=== PATIENT | female | born 1965 | race African-American/Black ===

== ENCOUNTER → 2020-09-03 | Outpatient (CLI) | payer OTHER ==
[2015-05-22 14:15] VITALS: BP 136/70
[~2020-09-03] MED LIST: AMLO2.5T5 PO; CHOL200074 PO; CYAN-25 PO; DOXY100C2 PO; FERR325T58 PO; HYDR-3164 PO; HYDR12.575 PO; HYDR12.58 PO; IOHEXOL 300 MG/ML 100ML VIAL. IV ONE
--- NOTE | 2020-09-03 15:37 | KCIC ---
CT SOFT TISSUE NECK W/CONTRAST DATE: 09/03/2020 12:00 AM INDICATION: Mass Left side of neck 3-4 weeks. TECHNIQUE: Axial computed tomography of the neck with intravenous contrast according to the standard neck protocol. 95 cc of Omnipaque 300 was administered intravenously. One or more of the following dose reduction techniques were utilized: Automated exposure control (AEC), Adjustment of mA and/or kV according to patient size, Use of iterative reconstruction technique such as ASiR, CT scan done according to ALARA and image gently/image wisely COMPARISON: None. FINDINGS: Scattered subcentimeter lymph nodes are seen in the neck. None are pathologically enlarged or abnormally enhancing. The parotid, submandibular, and thyroid glands are normal. The muscles of the neck are normal. Vessels of the neck demonstrate normal course, caliber, and enhancement. The visualized aerodigestive tract is normal. The visualized posterior fossa and brain is unremarkable. The visualized orbits and paranasal sinuses are normal. Mild multilevel degenerative disc desiccation. Multilevel spinal canal stenosis secondary to disc protrusions and marginal osteophytes. Multilevel neural foraminal narrowing secondary to uncovertebral and facet arthrosis. The visualized lung apices are clear. IMPRESSION: No neck mass or lymphadenopathy. Deep to the localizing BB's is fat density tissue. Electronically signed by: Chan Donald MD (09/03/2020 3:34 PM) [facility]
== END ==
LOC: KCIC CT 11:01
PROVIDERS: ATTEND Otolaryngology
DX: R22.1 Localized swelling, mass and lump, neck (principal); M50.30 Other cervical disc degeneration, unspecified cervical region; M48.02 Spinal stenosis, cervical region; M25.78 Osteophyte, vertebrae
CPT/HCPCS: 70491; Q9967

== ENCOUNTER → 2022-03-24 | Outpatient (CLI) | payer OTHER ==
[2015-05-22 14:15] VITALS: BP 136/70
[~2022-03-24] MED LIST changes: -DOXY100C2 PO; +DOXY100C3 PO; -IOHEXOL 300 MG/ML 100ML VIAL. IV ONE
--- NOTE | 2022-03-24 09:45 | RAD ---
US PELVIS W/TV History: Reason: POST MENOPAUSAL BLEEDING / Spl. Instructions: / History: Comparison: None Technique: Grayscale and color Doppler imaging of the pelvis was performed using transabdominal and t ransvaginal technique. Findings: The uterus measures 10.0 x 6.2 x 7.8 cm. Heterogeneous lower anterior uterine segment lesion measure s 2.4 x 1.6 cm. Posterior myometrial lesion measures 2.0 x 2.5 cm. Mid myometrial lesion measures 2.0 x 2.4 cm. Left uterine mass measures 4.0 x 3.3 cm. The endometrial stripe measures 8 mm. Bilateral ovaries not well seen due to positioning and overlying structures. IMPRESSION: 1. Multiple myometrial masses, most likely fibroids. Electronically signed by: Domenico Cunningham DO (03/24/2022 9:42 AM) [id number]
== END ==
LOC: US 07:13
PROVIDERS: ATTEND Nurse Practitioner Family
DX: N95.0 Postmenopausal bleeding (principal); N85.9 Noninflammatory disorder of uterus, unspecified
CPT/HCPCS: 76830; 76856